=== PATIENT | female | born 1960 | race Caucasian/White ===

== ENCOUNTER 2016-07-18 21:27 | Inpatient (IN) | payer BC ==
[~2016-07-18] VITALS: Ht 170.2 cm; Wt 111.6 kg
[~2016-07-18 21:27] MED LIST: HYDR12.58 PO; LEVO25TA2 PO; LEVO500T38 PO; LEVO75TA5 PO
[2016-07-18] MEDS ORDERED: DEXA4TAB PO (22:15)
[2016-07-18] MEDS ORDERED: HYDR12.53 PO (22:15)
[2016-07-18] MEDS ORDERED: HYDR-2678 PO (22:16)
[2016-07-18 22:26] LABS: BILIRUBIN,URINE NEGATIVE (NEG); GLUCOSE,URINE NEGATIVE (NEG); NITRITE,URINE NEGATIVE (NEG); PH,URINE 5.5; PROTEIN,URINE NEGATIVE (NEG-TRACE); UROBILINOGEN,URINE 0.2 mg/dL (0.2 mg/dL)
[2016-07-18 22:34] LABS: BACTERIA,URINE 0 /HPF (0-FEW); SQUAMOUS EPITHELIAL CELL,UR MOD /LPF
[2016-07-18] MEDS ORDERED: HYDROMORPHONE 2 MG/ML VIAL. IV ONE (23:00)
[2016-07-18] MEDS ORDERED: ONDANSETRON PF 4 MG/2 ML VIAL. IV ONE (23:00)
--- NOTE | 2016-07-18 23:56 | RAD ---
PROCEDURE CT scan of the abdomen and pelvis without contrast 07/18/2016 HISTORY Left-sided flank pain and nausea and vomiting. TECHNIQUE Unenhanced contiguous, 2 millimeter axial sections were obtained through the abdomen and pelvis. One or more of the following individualized dose reduction techniques were utilized for this study: 1. Automated exposure control. 2. Adjustment of the mA and/or kV according to patient size. 3. Use of iterative reconstruction technique. FINDINGS Images through the lung bases demonstrate a small left pneumothorax which is incompletely visualized on this study. Areas of subsegmental atelectasis are seen involving both lower lobes. A 8 millimeter calcified granuloma is seen involving the lingula. The heart is borderline enlarged. The liver, spleen, pancreas, and adrenal glands are within normal limits. Bilateral nonobstructing renal calculi are seen. These measure 2 millimeters to 6 millimeters in size. The abdominal aorta tapers normally. The gallbladder is well distended. No free fluid or free air is seen within the abdomen. There is no evidence of bowel obstruction. Images through the pelvis demonstrate the urinary bladder distended with urine. Calcifications are seen within the pelvis consistent with phleboliths. The uterus is within normal limits. No adnexal mass is seen. A moderate amount of stool is seen within the rectum. No free fluid is noted. Very mild S-shaped curvature of the thoracolumbar spine is seen. Degenerative changes are seen involving the lower thoracic and throughout the lumbar spine. IMPRESSION 1. Small left pneumothorax which is incompletely visualized on this study. 2. No acute abnormality is seen involving the abdomen and pelvis. Electronically signed by: Geoff Vail MD (Jul 18, 2016 23:54:53)
[2016-07-19] MEDS ORDERED: ACETAMINOPHEN 325 MG TABLET. PO PRN (00:15)
--- NOTE | 2016-07-19 00:26 | PHYS DOC ---
Past Medical History Past Medical History: Cancer, Hypertension, Kidney Stone, Other Additional Past Medical Histor: BREAST CANCER,HYPOTHYROID Past Surgical History: Other Additional Past Surgical Histo: PORTOCATH 06/2016, LUMPECTOMY R BREAST Alcohol Use: None Drug Use: None Adult General Chief Complaint Chief Complaint: POST-OP PROBLEM HPI HPI Patient is a 56 year old female who presents here today complaining of chest pain and back pain. Patient with history significant for breast cancer, hypertension, kidney stones, thyroid cancer. Patient reports that she had [facility] Patient reports no history of diabetes liver or lung problems. Patient had 3 C-sections in the past. Patient is also had a breast lumpectomy. Patient's primary care doctor is Dr. Harman. Patient reports that after procedure today she was having some pain to her back and chest and throughout the course of the evening the pain scale and worse and worse. Patient reports that currently the pain is intolerable and is coming into the ER. Patient is complaining of some nausea, vomiting, shortness of breath. Patient denies any fevers shaking chills. Patient reports she has a nonproductive cough. Patient has any abdominal pain. Patient denies any lower semi-edema. Patient has any calf tenderness. Patient denies any hemoptysis. Patient's physical exam was remarkable for tenderness to palpation around the site of her incision. There is no crepitance is appreciable. Patient's lungs are clear. There is no wheezing rales or rhonchi. Patient's breath sounds are equal bilaterally. Patient abdominal exam was normal. Patient does not appear to be in any acute distress at this time. Patient had a stat portable chest x-ray upon arrival to the ER to look for pneumothorax. Patient's chest x-ray did not reveal any evidence of a pneumothorax or evidence of air in the soft tissue. Given the patient's history of kidney stones in the pain in the back we obtain a CT scan of her abdomen pelvis to rule out kidney stones. Patient's CT scan revealed that she had a small pneumothorax that was identified by the radiologist. No other acute pathology was identified. I discussed the case with Dr. Harman and he is agreed with the plan to admit the patient for pain management and to monitor her pneumothorax for any expansion. Dr. Zavaleta will be consulted for further management of her care. Review of Systems Review of Systems Constitutional: Denies fever or chills [] Eyes: Denies change in visual acuity, redness, or eye pain [] All other review systems are negative except as documented in the history of present illness. Current Medications Current Medications Current Medications Medications (Trade) Dose Ordered Sig/Radu Start Time Stop Time Status Last Admin Dose Admin Acetaminophen (Tylenol) 650 mg PRN Q4HRS PRN 07/19/16 00:15 07/20/16 00:14 UNV Fentanyl Citrate (Fentanyl 2ml Vial) 50 mcg PRN Q1HR PRN 07/19/16 00:15 07/20/16 00:14 UNV Fentanyl Citrate (Fentanyl 5ml Vial) 25 mcg 1X STAT 07/19/16 00:17 07/19/16 00:18 UNV Hydromorphone HCl (Dilaudid) 1 mg 1X ONCE 07/18/16 23:00 07/18/16 23:01 DC 07/18/16 22:39 1 MG Ondansetron HCl (Zofran) 4 mg PRN Q8HRS PRN 07/19/16 00:15 07/20/16 00:14 UNV Allergies Allergies Allergies Coded Allergies Type Severity Reaction Last Updated Verified Sulfa (Sulfonamide Antibiotics) Allergy Intermediate 07/23/15 Yes promethazine Allergy Intermediate 07/23/15 Yes Physical Exam Physical Exam Constitutional: Well developed, well nourished, no acute distress, non-toxic appearance. [] HENT: Normocephalic, atraumatic, bilateral external ears normal, oropharynx moist, no oral exudates, nose normal. [] Eyes: PERRLA, EOMI, conjunctiva normal, no discharge. [] Neck: Normal range of motion, no tenderness, supple, no stridor. [] Cardiovascular:Heart rate regular rhythm, tachycardic Lungs & Thorax: Bilateral breath sounds clear to auscultation [] Abdomen: Bowel sounds normal, soft, no tenderness, no masses, no pulsatile masses. [] Skin: Warm, dry, no erythema, no rash. [] Back: No tenderness, no CVA tenderness. [] Extremities: No tenderness, no cyanosis, no clubbing, ROM intact, no edema. [] Neurologic: Alert and oriented X 3, normal motor function, normal sensory function, no focal deficits noted. [] Psychologic: Affect normal, judgement normal, mood normal. [] Current Patient Data Vital Signs Vital Signs Date Time Temp Pulse Resp B/P Pulse Ox O2 Delivery O2 Flow Rate FiO2 07/18/16 23:33 110 15 101/68 100 Nasal Cannula 2 07/18/16 22:01 98.2 98.2 Lab Values Laboratory Tests Test 07/18/16 21:55 Urine Collection Type Unknown Urine Color Yellow Urine Clarity Clear Urine pH 5.5 Urine Specific [place] >=1.030 Urine Protein Negativemg/dL (NEG-TRACE) Urine Glucose (UA) Negativemg/dL (NEG) Urine Ketones (Stick) Negativemg/dL (NEG) Urine Blood Trace (NEG) Urine Nitrite Negative (NEG) Urine Bilirubin Negative (NEG) Urine Urobilinogen Dipstick 0.2mg/dL (0.2 mg/dL) Urine Leukocyte Esterase Small (NEG) Urine RBC 1-2/HPF (0-2) Urine WBC 11-20/HPF (0-4) Urine Squamous Epithelial Cells Mod/LPF Urine Bacteria 0/HPF (0-FEW) Urine Mucus Mod/LPF EKG EKG [] Radiology/Procedures Radiology/Procedures [] Course & Med Decision Making Course & Med Decision Making Pertinent Labs and Imaging studies reviewed. (See chart for details) [] This is a 56-year-old female who presents here today complaining of worsening left-sided sharp chest pain is pleuritic in nature. Patient recently had a procedure done to place a Port-A-Cath on the left side of her chest for possible chemotherapy for breast cancer. Patient's workup in the ER revealed a small left-sided pneumothorax. Patient be admitted to the hospital for further management. Patient was given Dilaudid 1 mg IV to assist her with her pain. Patient also given 25 mics of fentanyl to help her manage her pain. Dragon Disclaimer Dragon Disclaimer This electronic medical record was generated, in whole or in part, using a voice recognition dictation system. Departure Departure Impression: Primary Impression: Traumatic pneumothorax Disposition: ADMITTED INPATIENT Admitting Physician: Ruben Harman Condition: GUARDED Referrals: SHARMAINE CHEATHAM (PCP) MAKAYLA PORRAS MD Jul 19, 2016 00:26
[2016-07-19] MEDS: FENTANYL PF 100 MCG/2 ML VIAL. IV ONE ×2 (00:30→01:00)
[2016-07-19 00:40] LABS: BASO # 0.1 x10^3/uL (0.0-0.2); BASO % 1 % (0-3); EOS % 0 % (0-3); HEMATOCRIT 38.8 % (36.0-47.0); HEMOGLOBIN 13.1 g/dL (12.0-15.5); LYMPH % 16 % (24-48); MEAN CORPUSCULAR HEMOGLOBIN 32 pg (25-35); MEAN CORPUSCULAR HGB CONC 34 g/dL (31-37); MEAN CORPUSCULAR VOLUME 96 fL (79-100); MONO % 4 % (0-9); NEUT % 80 % (31-73); PLATELET COUNT 362 x10^3/uL (140-400); RED BLOOD COUNT 4.06 x10^6/uL (3.50-5.40); RED CELL DISTRIBUTION WIDTH 13.9 % (11.5-14.5); WHITE BLOOD COUNT 12.6 x10^3/uL (4.0-11.0)
[2016-07-19 00:51] LABS: CALCIUM 9.7 mg/dL (8.5-10.1); CREATININE 0.8 mg/dL (0.6-1.0); GFR 74.7
[2016-07-19 00:56] LABS: INR 1.1 (0.8-1.1); PROTHROMBIN TIME PATIENT 13.4 SEC (11.7-14.0)
[2016-07-19 00:57] LABS: ALBUMIN/GLOBULIN RATIO 1.2 (1.0-1.7); TOTAL BILIRUBIN 0.4 mg/dL (0.2-1.0); TOTAL PROTEIN 7.3 g/dL (6.4-8.2)
[2016-07-19] MEDS: FENTANYL PF 100 MCG/2 ML VIAL. IV PRN ×9 (01:15→23:09)
[2016-07-19] MEDS: ONDANSETRON PF 4 MG/2 ML VIAL. IV PRN ×2 (01:33→07:41)
[2016-07-19 03:00] VITALS: BP 147/81
[2016-07-19 07:00] VITALS: BP 138/81
--- NOTE | 2016-07-19 07:29 | RAD ---
Indication: Chest pain and back pain with shortness of air. No prior studies are available for comparison. Left subclavian line has tip overlying the SVC. There is central congestion but no overt failure. No effusion or pneumothorax is seen. Impression: Central congestion.
[2016-07-19] MEDS ORDERED: HYDROCODONE/APAP 5/325MG TABLET. PO PRN (08:30)
--- NOTE | 2016-07-19 08:34 | PDOC ---
Provider Note Provider Note [id number] MARIAN MASON MD Jul 19, 2016 08:34
[2016-07-19] MEDS ORDERED: KETOROLAC TROMETHAMINE 30 MG/ML SYRINGE. IV PRN (08:45)
[2016-07-19] MEDS ORDERED: LEVOFLOXACIN 500 MG TABLET PO SCH (09:00)
[2016-07-19] MEDS ORDERED: DEXAMETHASONE 4 MG TABLET PO SCH (09:00)
[2016-07-19] MEDS ORDERED: NON FORMULARY ITEM (Hydrochlorothiazide (Hydrochlorothiazide Tablet) 12.5 MG) PO SCH (09:00)
[2016-07-19] MEDS: HYDROCHLOROTHIAZIDE 12.5 MG CAPSULE. PO SCH (09:19)
[2016-07-19] MEDS: LEVOTHYROXINE 75 MCG TABLET PO SCH (09:20)
--- NOTE | 2016-07-19 09:24 | RAD ---
Portable chest, 07/19/2016: History: Follow-up pneumothorax Comparison is made to yesterday's study. A left Port-A-Cath extends into the superior vena cava. The heart is within normal limits in size. The pulmonary vascularity is normal. Mild streaky atelectasis has developed in the lung bases. The upper lung ledezma are clear. A tiny left-sided pneumothorax is now visible. It was clearly demonstrated on yesterday's CT abdomen study. No pleural fluid is evident. IMPRESSION: 1. Tiny left pneumothorax. 2. Mild bibasilar discoid atelectasis.
--- NOTE | 2016-07-19 10:19 | EKG ---
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
[2016-07-19 11:06] VITALS: BP 131/77
--- NOTE | 2016-07-19 11:53 | PDOC ---
Provider Note Provider Note dictated tiny left PTX, post oralia-cath stable. f/u cxr in RUBY Ardon MD Jul 19, 2016 11:53
--- NOTE | 2016-07-19 14:56 | HP ---
ADMIT DATE: 07/19/2016 CHIEF COMPLAINT: Left chest pain. HISTORY OF PRESENT ILLNESS: This is a 56-year-old white female with known breast cancer who is followed in our office for hypertension, had a left subclavian placed at the [place] office of [facility] where her oncologist works on the same day of admission. She developed some progressive left-sided, somewhat pleuritic, poorly localized chest pain later that day and came to the hospital. Plain chest x-ray did not show the pneumothorax, but the CT scan showed a small right-sided pneumothorax. She was admitted with oxygen and pain meds. She is feeling a little better at this time. PAST MEDICAL HISTORY: Hydrochlorothiazide is certainly medication which she takes for hypertension. She also takes thyroid medication. PAST SURGICAL HISTORY: She has had tonsillectomy, partial thyroidectomy for thyroid cancer, uterine polyp removal and then some degree of breast surgery, which is ongoing with the breast cancer that she has gotten now. She is entered in a new chemotherapy protocol per very soon. ALLERGIES: Listed to sulfa and Phenergan. SOCIAL HISTORY: She is , employed, nonsmoker, nondrinker. FAMILY HISTORY: Unremarkable. REVIEW OF SYSTEMS: No other complaints. OBJECTIVE: ENT: All within normal limits. NECK: No masses, nodes or bruits. LUNGS: Decreased breath sounds at both bases. No dullness to percussion or hyperresonance. No friction rub is heard. CARDIOVASCULAR: Regular rate, no irregular beat or murmur. ABDOMEN: Soft, benign and nontender. EXTREMITIES: Good pedal and radial pulses, no edema. No joint or skin lesions. NEUROLOGIC: Physiologic, oriented x 4, nonfocal. ASSESSMENT: Left-sided chest pain from the pneumothorax after left subclavian vein catheter port placement. She has ongoing breast cancer and stable hypertension and thyroid disease. PLAN: High flow oxygen, serial chest x-rays, pulmonary consultation and supportive Care. MARIAN MASON MD DR: HERBERT/frida JOB#: [id number] / [id number]
--- NOTE | 2016-07-19 15:17 | CONS ---
DATE OF CONSULTATION: ATTENDING PHYSICIAN: Dr. Ruben Harman. REASON FOR CONSULTATION: Pneumothorax. HISTORY OF PRESENT ILLNESS: The patient is a 56-year-old female who has been diagnosed with right breast cancer with lymph node involvement. She follows at . She had a breast lumpectomy. The patient had a Port-A-Cath placed at yesterday and she was brought into the hospital because she was complaining of pain in the left side of the chest and left upper quadrant. Her chest x-ray initially did not reveal any definite pneumothorax; however, she underwent CT abdomen and pelvis, which was reviewed by me and it showed a small left pneumothorax. The patient has been kept on 100% oxygen to treat pneumothorax. Her saturations were 100% on room air. Currently, she is in no obvious respiratory distress. I have reviewed chest x-ray and it shows a tiny, probably 5% pneumothorax today. Consultation requested for further evaluation and management. PAST MEDICAL HISTORY: Significant for history of breast cancer, status post right lumpectomy, history of hypertension, and renal stones. PAST SURGICAL HISTORY: Port-A-Cath and right lumpectomy. ALLERGIES: SULFA AND PROMETHAZINE. SOCIAL HISTORY: Smoked for about 10 years before quitting. FAMILY HISTORY: Noncontributory to lungs. MEDICATIONS: All reviewed as listed in the MRAD. PHYSICAL EXAMINATION: VITAL SIGNS: Stable, pulse ox was 100% on room air. Currently, she is on nonrebreather mask to treat her pneumothorax. HEENT: Sclerae nonicteric. NECK: Supple. LUNGS: Slightly diminished breath sounds bilaterally. CARDIOVASCULAR: Regular rate. ABDOMEN: Soft, obese. EXTREMITIES: No pitting edema. LABORATORY DATA: Reviewed. White cell count 12.6. BUN is 20, creatinine 0.8. Hemoglobin is 13.1. IMPRESSION: 1. Iatrogenic left-sided small pneumothorax. The patient underwent Port-A-Cath placement at yesterday and developed a symptomatic tiny left-sided pneumothorax. It has not expanded and it is probably less than 5%. We will continue to monitor. 2. No significant history of tobacco use. 3. History of right breast cancer, status post right lumpectomy and has not received any treatment yet. RECOMMENDATIONS: 1. Continue with nonrebreather 100% FiO2 to treat pneumothorax. 2. Follow chest x-ray for another day, and if it remains stable, then she could be discharged. 3. Follow with oncology regarding further treatment for breast cancer. RUBY LEWIS MD DR: FRANCIS/frida JOB#: [id number] / [id number] MAXIM
[2016-07-19 15:41] VITALS: BP 132/75
[2016-07-19] MEDS: HYDROCODONE/APAP 5/325MG TABLET. PO PRN (18:27)
[2016-07-19 19:00] VITALS: BP 148/81
[2016-07-19 23:00] VITALS: BP 158/85
[2016-07-20] MEDS: HYDROCODONE/APAP 5/325MG TABLET. PO PRN ×3 (00:34→09:59)
[2016-07-20 03:00] VITALS: BP 130/73
[2016-07-20 07:56] VITALS: BP 129/75
[2016-07-20] MEDS ORDERED: HYDROCODONE/APAP 5/325MG TABLET. PO PRN (08:30)
--- NOTE | 2016-07-20 08:35 | PDOC ---
Provider Note Provider Note vss, no new sxs- still some pain L side but less - cxr looks clear to me of pneumo, reading pending- can dc when MARIAN Dela Cruz MD Jul 20, 2016 08:35
--- NOTE | 2016-07-20 09:00 | RAD ---
Indication: Pneumothorax. Time of exam 0815 hours. Correlation is made with prior study one day earlier. Left subclavian line remains in place. No significant pneumothorax is identified on today's exam. There continues to be subsegmental atelectasis in the lung bases. Right hemidiaphragm is mildly elevated. Impression: Bibasilar subsegmental atelectasis. Tiny left pneumothorax noted on yesterday's exam is not well-visualized today.
[2016-07-20] MEDS: HYDROCHLOROTHIAZIDE 12.5 MG CAPSULE. PO SCH (09:53)
[2016-07-20] MEDS: LEVOTHYROXINE 75 MCG TABLET PO SCH (09:53)
--- NOTE | 2016-07-20 10:13 | PDOC ---
PULMONARY PROGRESS NOTES Subjective feels better Vitals Vital Signs Date Time Temp Pulse Resp B/P Pulse Ox O2 Delivery O2 Flow Rate FiO2 07/20/16 09:59 20 Room Air 07/20/16 07:56 97.9 86 129/75 100 97.9 07/20/16 06:46 15.0 General: Alert, No acute distress Lungs: Clear Cardiovascular: S1 Abdomen: Soft Neuro Exam: Alert Extremities: No Edema Skin: Warm Labs Laboratory Tests Test 07/18/16 21:55 07/18/16 22:05 Urine Collection Type Unknown Urine Color Yellow Urine Clarity Clear Urine pH 5.5 Urine Specific [place] >=1.030 Urine Protein Negativemg/dL (NEG-TRACE) Urine Glucose (UA) Negativemg/dL (NEG) Urine Ketones (Stick) Negativemg/dL (NEG) Urine Blood Trace (NEG) Urine Nitrite Negative (NEG) Urine Bilirubin Negative (NEG) Urine Urobilinogen Dipstick 0.2mg/dL (0.2 mg/dL) Urine Leukocyte Esterase Small (NEG) Urine RBC 1-2/HPF (0-2) Urine WBC 11-20/HPF (0-4) Urine Squamous Epithelial Cells Mod/LPF Urine Bacteria 0/HPF (0-FEW) Urine Mucus Mod/LPF White Blood Count 12.6x10^3/uL (4.0-11.0) Red Blood Count 4.06x10^6/uL (3.50-5.40) Hemoglobin 13.1g/dL (12.0-15.5) Hematocrit 38.8% (36.0-47.0) Mean Corpuscular Volume 96fL (79-100) Mean Corpuscular Hemoglobin 32pg (25-35) Mean Corpuscular Hemoglobin Concent 34g/dL (31-37) Red Cell Distribution Width 13.9% (11.5-14.5) Platelet Count 362x10^3/uL (140-400) Neutrophils (%) (Auto) 80% (31-73) Lymphocytes (%) (Auto) 16% (24-48) Monocytes (%) (Auto) 4% (0-9) Eosinophils (%) (Auto) 0% (0-3) Basophils (%) (Auto) 1% (0-3) Neutrophils # (Auto) 10.0x10^3uL (1.8-7.7) Lymphocytes # (Auto) 2.0x10^3/uL (1.0-4.8) Monocytes # (Auto) 0.5x10^3/uL (0.0-1.1) Eosinophils # (Auto) 0.0x10^3/uL (0.0-0.7) Basophils # (Auto) 0.1x10^3/uL (0.0-0.2) Prothrombin Time 13.4SEC (11.7-14.0) Prothromb Time International Ratio 1.1 (0.8-1.1) Sodium Level 145mmol/L (136-145) Potassium Level 5.0mmol/L (3.5-5.1) Chloride Level 107mmol/L (98-107) Carbon Dioxide Level 29mmol/L (21-32) Anion Gap 9 (6-14) Blood Urea Nitrogen 20mg/dL (7-20) Creatinine 0.8mg/dL (0.6-1.0) Estimated GFR (Cockcroft-Gault) 74.7 BUN/Creatinine Ratio 25 (6-20) Glucose Level 123mg/dL (70-99) Calcium Level 9.7mg/dL (8.5-10.1) Total Bilirubin 0.4mg/dL (0.2-1.0) Aspartate Amino Transf (AST/SGOT) 31U/L (15-37) Alanine Aminotransferase (ALT/SGPT) 38U/L (14-59) Alkaline Phosphatase 98U/L (46-116) Total Protein 7.3g/dL (6.4-8.2) Albumin 4.0g/dL (3.4-5.0) Albumin/Globulin Ratio 1.2 (1.0-1.7) Medications Active Scripts Medications Dose Route/Sig Days Date Category Lortab 5-325 mg Tablet (Hydrocodone/Acetaminophen) 1 Each Tablet 1 Tab PO PRN Q6HRS PRN 07/18/16 Reported Hydrochlorothiazide Capsule (Hydrochlorothiazide) 12.5 Mg Capsule 1 Cap PO DAILY 07/18/16 Reported Dexamethasone 4 Mg Tablet 4 Tab PO DAILY 07/18/16 Reported Levaquin (Levofloxacin) 500 Mg Tablet 500 Mg PO DAILY 07/21/15 Reported Hydrochlorothiazide Tablet (Hydrochlorothiazide) 12.5 Mg Tablet 12.5 Mg PO DAILY 1/26/16 Reported Levothyroxine Sodium 75 Mcg Tablet 75 Mcg PO DAILYAC 07/21/15 Reported Impression . 1. Iatrogenic left-sided small pneumothorax. The patient underwent Port-A-Cath placement at yesterday and developed a symptomatic tiny left-sided pneumothorax. It has not expanded and now resolved 2. No significant history of tobacco use. 3. History of right breast cancer, status post right lumpectomy and has not received any treatment yet. Plan . 1. d/c oxygen 2. Follow chest x-ray today with resolved PTX. OK WITH D/C TODAY 3. Follow with oncology regarding further treatment for breast cancer. RUBY LEWIS MD Jul 20, 2016 10:13
[2016-07-20 10:29] VITALS: BP 141/74
[2016-07-20] MEDS ORDERED: IBUP-1027 PO (13:56)
[2016-07-20] MEDS ORDERED: IBUPROFEN 400 MG TABLET. PO PRN (14:00)
[2016-07-20 14:45] VITALS: BP 125/70
--- NOTE | 2016-07-20 20:15 | DS ---
DATE OF DISCHARGE: 07/20/2016 HOSPITAL SUMMARY: A 56-year-old white female who came in with left-sided chest pain some hours after having a Port-A-Cath placed through a [facility] in her left chest. Plain chest x-ray was clear with CT scan showed about a 5% pneumothorax and no other specific abnormalities. Laboratory studies were normal and subsequent chest x-rays were clear. She was given 100% oxygen nonrebreather over about 36 hour period and her pain is much lessened and Dr. Aj and patient were both comfortable. The patient will be discharged and followed as an outpatient. FINAL DIAGNOSES: Left-sided pneumothorax secondary to left subclavian vein catheter placement. OPERATIONS, PROCEDURES, COMPLICATIONS: None. CONSULTATIONS: Dr. Aj. DISPOSITION: Home meds remain the same. Follow up with [facility] for starting chemotherapy regimen as she is doing and we will see her in the office as needed for hypertension. MARIAN MASON MD DR: HERBERT/frida JOB#: [id number] / [id number]
== END 2016-07-20 14:55 | disposition home or self-care (01) | DRG 920 ==
LOC: ER 21:27 → 5 NORTH 07-19 00:14
PROVIDERS: ADMIT Family Medicine; ATTEND Family Medicine
DX: T85.9XXA Unspecified complication of internal prosthetic device, implant and graft, initial encounter (principal); S27.0XXA Traumatic pneumothorax, initial encounter; E66.9 Obesity, unspecified; R11.2 Nausea with vomiting, unspecified; M54.9 Dorsalgia, unspecified; C50.911 Malignant neoplasm of unspecified site of right female breast; E89.0 Postprocedural hypothyroidism; I10 Essential (primary) hypertension; Z85.850 Personal history of malignant neoplasm of thyroid; Z85.3 Personal history of malignant neoplasm of breast; Z87.442 Personal history of urinary calculi; Z88.2 Allergy status to sulfonamides; Z88.8 Allergy status to other drugs, medicaments and biological substances; Z98.890 Other specified postprocedural states; Z87.891 Personal history of nicotine dependence; Z68.38 Body mass index [BMI] 38.0-38.9, adult
CPT/HCPCS: 36415; 71010; 74176; 80053; 81001; 85027; 85610; 87086; 93005; 96374; 96375; J1170; J2405; J3010; 99285-25

== ENCOUNTER 2017-03-23 14:19 | Emergency (ER) | payer BC ==
[~2017-03-23] VITALS: Ht 170.2 cm; Wt 109.8 kg
[~2017-03-23 14:19] MED LIST changes: +DEXA4TAB PO; +HYDR-2678 PO; +HYDR12.53 PO; +IBUP-1027 PO; -LEVO25TA2 PO; +LEVO25TA55 PO; -LEVO500T38 PO; +LEVO500T59 PO
[2017-03-23] MEDS ORDERED: KETOROLAC 15 MG/ML VIAL. IV ONE ×2 (15:00→17:30)
[2017-03-23] MEDS ORDERED: IV NORMAL SALINE 1000ML BAG 1,000 ML IV ONE (15:00)
[2017-03-23 15:07] LABS: BILIRUBIN,URINE NEGATIVE (NEG); GLUCOSE,URINE NEGATIVE (NEG); NITRITE,URINE NEGATIVE (NEG); PH,URINE 6.5; PROTEIN,URINE NEGATIVE (NEG-TRACE); UROBILINOGEN,URINE 0.2 mg/dL (0.2 mg/dL)
[2017-03-23] MEDS ORDERED: LETR2.5T18 PO (15:16)
[2017-03-23 15:18] LABS: BACTERIA,URINE FEW /HPF (0-FEW); RBC,URINE OCC /HPF (0-2); SQUAMOUS EPITHELIAL CELL,UR OCC /LPF; WBC,URINE 0 /HPF (0-4)
[2017-03-23 15:27] LABS: BASO % 1 % (0-3); EOS % 5 % (0-3); HEMATOCRIT 38.4 % (36.0-47.0); HEMOGLOBIN 13.1 g/dL (12.0-15.5); LYMPH # 1.5 x10^3/uL (1.0-4.8); LYMPH % 30 % (24-48); MEAN CORPUSCULAR HEMOGLOBIN 28 pg (25-35); MEAN CORPUSCULAR HGB CONC 34 g/dL (31-37); MEAN CORPUSCULAR VOLUME 83 fL (79-100); MONO % 10 % (0-9); NEUT % 54 % (31-73); PLATELET COUNT 219 x10^3/uL (140-400); RED BLOOD COUNT 4.62 x10^6/uL (3.50-5.40); RED CELL DISTRIBUTION WIDTH 16.5 % (11.5-14.5); WHITE BLOOD COUNT 5.1 x10^3/uL (4.0-11.0)
[2017-03-23 15:39] LABS: CALCIUM 9.3 mg/dL (8.5-10.1); CREATININE 0.6 mg/dL (0.6-1.0); GFR 103.8
--- NOTE | 2017-03-23 16:05 | RAD ---
Examination: Ultrasound kidneys History: History of left flank pain, renal stones Comparison: None available Findings: The right kidney measures 12.0 x 4.9 x 5.6 cm. The left kidney measures 11.4 x 4.9 x 5.6 cm. There is a 9 mm echogenicity identified in the left kidney could be cortical calcification or intrarenal collecting system calculus. No evidence of hydronephrosis identified. The urinary bladder is empty. Impression: 1. 9 mm echogenicity likely calcification identified in the left kidney could be cortical calcification or intrarenal collecting system calculus. No evidence of hydronephrosis.
[2017-03-23 17:14] VITALS: BP 132/73
[2017-03-23] MEDS ORDERED: ACET1TAB33 PO (17:53)
[2017-03-23] MEDS ORDERED: NAPR-695 PO (17:53)
--- NOTE | 2017-03-23 17:54 | PHYS DOC ---
Past Medical History Past Medical History: Cancer, Hypertension, Hypothyroid, Kidney Stone, Other Additional Past Medical Histor: BREAST CANCER, collapsed lung d/t sx Past Surgical History: Other Additional Past Surgical Histo: PORTOCATH 06/2016, LUMPECTOMY R BREAST, lithotripsy, chemo, rad Alcohol Use: None Drug Use: None Adult General Chief Complaint Chief Complaint: FLANK PAIN HPI HPI Patient is a 57 year old female presents with left flank pain similar to previous episodes of kidney stone. Patient denies any recent trauma. Patient has no other complaints. Review of Systems Review of Systems Constitutional: Denies fever or chills [] HENT: Denies nasal congestion or sore throat [] Respiratory: Denies cough or shortness of breath [] Cardiovascular: No chest pain GI: Denies abdominal pain, nausea, vomiting, bloody stools or diarrhea [] : Denies dysuria or hematuria [] Musculoskeletal: Yes to left flank pain Integument: Denies rash or skin lesions [] Neurologic: Denies headache, focal weakness or sensory changes [] Endocrine: Denies polyuria or polydipsia [] Current Medications Current Medications Current Medications Medications (Trade) Dose Ordered Sig/Radu Start Time Stop Time Status Last Admin Dose Admin Ketorolac Tromethamine (Toradol) 15 mg 1X ONCE 03/23/17 17:30 03/23/17 17:31 DC Sodium Chloride 1,000 ml @ 1,000 mls/hr 1X ONCE 03/23/17 15:00 03/23/17 15:59 DC 03/23/17 15:29 1,000 MLS/HR Allergies Allergies Allergies Coded Allergies Type Severity Reaction Last Updated Verified Sulfa (Sulfonamide Antibiotics) Allergy Intermediate 07/23/15 Yes promethazine Allergy Intermediate 07/23/15 Yes Physical Exam Physical Exam Constitutional: Well developed, well nourished, mild distress, non-toxic appearance. [] HENT: Normocephalic, atraumatic,, oropharynx dry, no oral exudates, nose normal. [] Eyes: EOMI, conjunctiva normal, no discharge. [] Neck: Normal range of motion, trachea midline, supple, no stridor. [] Cardiovascular:Heart rate regular rhythm, no murmur [] Lungs & Thorax: Bilateral breath sounds clear to auscultation no tachypnea Abdomen: Bowel sounds normal, soft, no tenderness, no masses, no pulsatile masses. [] Skin: Warm, dry, no erythema, no rash. [] Back: No tenderness, no CVA tenderness. [] Extremities: No tenderness, no cyanosis, no clubbing, ROM intact, no edema. [] Neurologic: Alert and oriented X 3, normal motor function, no focal deficits noted. [] Psychologic: Affect normal, judgement normal, mood normal. [] Current Patient Data Vital Signs Vital Signs Date Time Temp Pulse Resp B/P (MAP) Pulse Ox O2 Delivery O2 Flow Rate FiO2 03/23/17 14:30 98.0 89 16 116/68 (84) 99 Room Air 98.0 Lab Values Laboratory Tests Test 03/23/17 14:30 03/23/17 14:42 03/23/17 15:20 Urine Collection Type Unknown Urine Color Yellow Urine Clarity Clear Urine pH 6.5 Urine Specific [place] <=1.005 Urine Protein Negative mg/dL (NEG-TRACE) Urine Glucose (UA) Negative mg/dL (NEG) Urine Ketones (Stick) Negative mg/dL (NEG) Urine Blood Trace (NEG) Urine Nitrite Negative (NEG) Urine Bilirubin Negative (NEG) Urine Urobilinogen Dipstick 0.2 mg/dL (0.2 mg/dL) Urine Leukocyte Esterase Negative (NEG) Urine RBC Occ /HPF (0-2) Urine WBC 0 /HPF (0-4) Urine Squamous Epithelial Cells Occ /LPF Urine Bacteria Few /HPF (0-FEW) POC Urine HCG, Qualitative Hcg negative (Negative) White Blood Count 5.1 x10^3/uL (4.0-11.0) Red Blood Count 4.62 x10^6/uL (3.50-5.40) Hemoglobin 13.1 g/dL (12.0-15.5) Hematocrit 38.4 % (36.0-47.0) Mean Corpuscular Volume 83 fL (79-100) Mean Corpuscular Hemoglobin 28 pg (25-35) Mean Corpuscular Hemoglobin Concent 34 g/dL (31-37) Red Cell Distribution Width 16.5 % (11.5-14.5) H Platelet Count 219 x10^3/uL (140-400) Neutrophils (%) (Auto) 54 % (31-73) Lymphocytes (%) (Auto) 30 % (24-48) Monocytes (%) (Auto) 10 % (0-9) H Eosinophils (%) (Auto) 5 % (0-3) H Basophils (%) (Auto) 1 % (0-3) Neutrophils # (Auto) 2.8 x10^3uL (1.8-7.7) Lymphocytes # (Auto) 1.5 x10^3/uL (1.0-4.8) Monocytes # (Auto) 0.5 x10^3/uL (0.0-1.1) Eosinophils # (Auto) 0.2 x10^3/uL (0.0-0.7) Basophils # (Auto) 0.0 x10^3/uL (0.0-0.2) Sodium Level 143 mmol/L (136-145) Potassium Level 4.0 mmol/L (3.5-5.1) Chloride Level 107 mmol/L (98-107) Carbon Dioxide Level 27 mmol/L (21-32) Anion Gap 9 (6-14) Blood Urea Nitrogen 7 mg/dL (7-20) Creatinine 0.6 mg/dL (0.6-1.0) Estimated GFR (Cockcroft-Gault) 103.8 Glucose Level 85 mg/dL (70-99) Calcium Level 9.3 mg/dL (8.5-10.1) Laboratory Tests 03/23/17 15:20 Laboratory Tests 03/23/17 15:20 EKG EKG [] Radiology/Procedures Radiology/Procedures US no remarkable findings[] Course & Med Decision Making Course & Med Decision Making Pertinent Labs and Imaging studies reviewed. (See chart for details) pain well controlled, discussed CT option but pt declines at this time due to concerns for radiation exposure. [] Dragon Disclaimer Dragon Disclaimer This electronic medical record was generated, in whole or in part, using a voice recognition dictation system. Departure Departure Impression: Primary Impression: Flank pain Disposition: 01 HOME, SELF-CARE Condition: STABLE Referrals: MARIAN MASON MD (PCP) Patient Instructions: Flank Pain Additional Instructions: please follow up with your pcp for recheck in 2 days Scripts Naproxen (NAPROXEN) 375 Mg Tablet 1 TAB PO BID, #20 TAB 0 Refills Prov: Reagan VILLALTA MD 03/23/17 Acetaminophen With Codeine (ACETAMINOPHEN-COD #3 TABLET) 1 Each Tablet 1 TAB PO PRN Q6HRS Y for PAIN for 2 Days, #8 TAB Prov: Reagan VILLALTA MD 03/23/17 Reagan VILLALTA MD Mar 23, 2017 17:54
== END 2017-03-23 17:57 | disposition home or self-care (01) ==
LOC: ER 14:19
DX: R10.9 Unspecified abdominal pain (principal); I10 Essential (primary) hypertension; E03.9 Hypothyroidism, unspecified; Z87.442 Personal history of urinary calculi; Z88.2 Allergy status to sulfonamides; Z88.8 Allergy status to other drugs, medicaments and biological substances
CPT/HCPCS: 36415; 76770; 80048; 81001; 81025; 85025; 96361; 96374; 96376; 99285; J1885; J7030

== ENCOUNTER 2020-12-05 09:53 | Emergency (ER) | payer BC, OTHER ==
[~2020-12-05] VITALS: Ht 167.6 cm; Wt 116.8 kg
[~2020-12-05 09:53] MED LIST changes: +ACET1TAB33 PO; +FEMARA2.5 MG PO; -HYDR12.53 PO; +HYDR12.575 PO; +NAPR-695 PO
[2020-12-05 10:26] LABS: BILIRUBIN,URINE NEGATIVE (NEG); CLARITY,URINE CLEAR; COLOR,URINE YELLOW; NITRITE,URINE NEGATIVE (NEG); PH,URINE 6.5 (<5.0-8.0); PROTEIN,URINE NEGATIVE (NEG-TRACE); UROBILINOGEN,URINE 0.2 mg/dL (0.2 mg/dL)
[2020-12-05 10:46] LABS: BACTERIA,URINE FEW /HPF (0-FEW); WBC,URINE >40 /HPF (0-4)
[2020-12-05 10:54] LABS: BASO # 0.1 x10^3/uL (0.0-0.2); BASO % 1 % (0-3); EOS # 0.3 x10^3/uL (0.0-0.7); EOS % 2 % (0-3); HEMATOCRIT 38.4 % (36.0-47.0); LYMPH # 1.5 x10^3/uL (1.0-4.8); LYMPH % 12 % (24-48); MEAN CORPUSCULAR HEMOGLOBIN 29 pg (25-35); MEAN CORPUSCULAR HGB CONC 34 g/dL (31-37); MEAN CORPUSCULAR VOLUME 85 fL (79-100); MONO % 8 % (0-9); NEUT # 9.7 x10^3/uL (1.8-7.7); NEUT % 77 % (31-73); PLATELET COUNT 243 x10^3/uL (140-400); RED BLOOD COUNT 4.52 x10^6/uL (3.50-5.40); RED CELL DISTRIBUTION WIDTH 14.3 % (11.5-14.5); WHITE BLOOD COUNT 12.5 x10^3/uL (4.0-11.0)
[2020-12-05 10:59] LABS: CALCIUM 9.2 mg/dL (8.5-10.1); CREATININE 0.8 mg/dL (0.6-1.0); GFR 73.7; POTASSIUM 4.1 mmol/L (3.5-5.1)
[2020-12-05] MEDS ORDERED: IOHEXOL 300 MG/ML 100ML VIAL. IV ONE (11:00)
[2020-12-05] MEDS ORDERED: CONTRAST GIVEN. MC PRN (11:00)
[2020-12-05 11:05] LABS: ALBUMIN/GLOBULIN RATIO 1.5 (1.0-1.7); TOTAL BILIRUBIN 0.5 mg/dL (0.2-1.0); TOTAL PROTEIN 6.7 g/dL (6.4-8.2)
--- NOTE | 2020-12-05 11:51 | RAD ---
CT ABDOMEN+PELVIS W History: RLQ pain Comparison: 07/18/2016 Technique: After administration of intravenous contrast, helical CT of the abdomen and pelvis was per formed from the lung bases through the ischial tuberosities. Coronal and sagittal reconstructions wer e obtained. 75 mL of Omnipaque 300 were used. One or more of the following dose reduction techniques were utilized: Automated exposure control (AEC), Adjustment of mA and/or kV according to patient size , Use of iterative reconstruction technique such as ASiR, CT scan done according to ALARA and image g ently/image wisely Abdomen Findings: The visualized lung bases are clear. Hepatic steatosis. The gallbladder, pancreas, spleen, and bilateral adrenal glands are normal. Unchan ged mild central mesenteric haziness, nonspecific but can seen with chronic mesenteric panniculitis. Symmetric renal enhancement. Mild right hydronephrosis with a 10 x 7 mm calculus at the ureteropelvic junction. Hyperemia of the pelvic urothelium. Additional nonobstructive right renal 7 mm calculus. The visualized loops of small bowel are normal. The visualized loops of large bowel are normal. There is no evidence of bowel obstruction. There is no free fluid. There is no mesenteric or retroperitoneal adenopathy. The abdominal aorta is normal in caliber. Pelvis Findings: Urinary bladder is normal. The uterus is present. No pelvic free fluid. There is no pelvic or inguina l adenopathy. There is no acute bony abnormality. IMPRESSION: 1. Mild right hydronephrosis with a 10 x 7 mm calculus at the ureteropelvic junction. Right renal pel vis urothelial hyperemia may reflect pyelitis. 2. Additional nonobstructive right renal 7 mm calculus. Electronically signed by: Memo Anderson MD (12/05/2020 11:49 AM) [id number]
[2020-12-05] MEDS ORDERED: KETOROLAC 30 MG/ML VIAL. IVP ONE (12:30)
[2020-12-05] MEDS ORDERED: TAMSULOSIN 0.4 MG CAP.ER.24H. PO ONE (12:30)
[2020-12-05] MEDS ORDERED: cefTRIAXone IV Push 1 GM VIAL. IVP ONE (12:30)
[2020-12-05] MEDS ORDERED: IV NORMAL SALINE 1000ML BAG 1,000 ML IV ONE (13:00)
--- NOTE | 2020-12-05 14:07 | PHYS DOC ---
Past Medical History Past Medical History: Cancer, Hypertension, Hypothyroid, Kidney Stone, Other Additional Past Medical Histor: BREAST CANCER, collapsed lung d/t sx Past Surgical History: Other Additional Past Surgical Histo: PORTOCATH 06/2016, LUMPECTOMY R BREAST, lithotripsy, chemo, rad Smoking Status: Former Smoker Alcohol Use: None Drug Use: None General Adult EDM: Chief Complaint: ABDOMINAL PAIN HPI: HPI: Patient is a 60 year old female with history of hypertension, kidney stones, breast cancer treated in 2016, who presents to the ED today complaining of 8 out of 10 sharp intermittent right lower quadrant abdominal pain with nausea, symptoms began yesterday. Patient denies anything specifically exacerbating or relieving her symptoms. Denies any hematuria. She states this does not feel similar to her kidney stone pain. Review of Systems: Review of Systems: constitutional: Denies fever or chills. [] Eyes: Denies change in visual acuity. [] HENT: Denies nasal congestion or sore throat. [] Respiratory: Denies cough or shortness of breath. [] Cardiovascular: Denies chest pain or edema. [] GI: Reports right lower quadrant abdominal pain with nausea, denies vomiting, bloody stools or diarrhea. [] : Denies dysuria. [] Musculoskeletal: Denies back pain or joint pain. [] Integument: Denies rash. [] Neurologic: Denies headache, focal weakness or sensory changes. [] Psychiatric: Denies depression or anxiety. [] Heart Score: C/O Chest Pain: N/A Risk Factors: Risk Factors: DM, Current or recent (<one month) smoker, HTN, HLP, family history of CAD, obesity. Risk Scores: Score 0 - 3: 2.5% MACE over next 6 weeks - Discharge Home Score 4 - 6: 20.3% MACE over next 6 weeks - Admit for Clinical Observation Score 7 - 10: 72.7% MACE over next 6 weeks - Early Invasive Strategies Current Medications: Current Medications Medications (Trade) Dose Ordered Sig/Radu Start Time Stop Time Status Last Admin Dose Admin Ceftriaxone Sodium (Rocephin) 1 gm 1X ONCE 12/05/20 12:30 12/05/20 12:31 DC 12/05/20 12:53 1 GM Info (CONTRAST GIVEN -- Rx MONITORING) 1 each PRN DAILY PRN 12/05/20 11:00 12/07/20 10:59 Iohexol (Omnipaque 300 Mg/ml) 75 ml 1X ONCE 12/05/20 11:00 12/05/20 11:01 DC 12/05/20 11:20 75 ML Ketorolac Tromethamine (Toradol 30mg Vial) 30 mg 1X ONCE 12/05/20 12:30 12/05/20 12:31 DC 12/05/20 12:53 30 MG Sodium Chloride 1,000 ml @ 1,000 mls/hr 1X ONCE 12/05/20 13:00 12/05/20 13:59 DC 12/05/20 12:53 1,000 MLS/HR Tamsulosin HCl (Flomax) 0.4 mg 1X ONCE 12/05/20 12:30 12/05/20 12:31 DC 12/05/20 12:53 0.4 MG Allergies: Allergies: Allergies Coded Allergies Type Severity Reaction Last Updated Verified Sulfa (Sulfonamide Antibiotics) Allergy Intermediate 07/23/15 Yes promethazine Allergy Intermediate 07/23/15 Yes Physical Exam: PE: Constitutional: Well developed, well nourished, no acute distress, non-toxic appearance. [] HENT: Normocephalic, atraumatic, bilateral external ears normal, oropharynx moist, no oral exudates, nose normal. [] Eyes: PERRLA, EOMI, conjunctiva normal, no discharge. [] Neck: Normal range of motion, no tenderness, supple, no stridor. [] Cardiovascular:Heart rate regular rhythm, no murmur [] Lungs & Thorax: Bilateral breath sounds clear to auscultation [] Abdomen: Bowel sounds normal, soft, slight tenderness in the right lower quadrant, negative psoas sign, negative obturator sign, negative Rovsing sign no masses, no pulsatile masses. [] Skin: Warm, dry, no erythema, no rash. [] Back: No tenderness, no CVA tenderness. [] Extremities: No tenderness, no cyanosis, no clubbing, ROM intact, no edema. [] Neurologic: Alert and oriented X 3, normal motor function, normal sensory function, no focal deficits noted. [] Psychologic: Affect normal, judgement normal, mood normal. [] Current Patient Data: Labs: Laboratory Tests Test 12/05/20 09:55 12/05/20 10:18 Urine Collection Type Unknown Urine Color Yellow Urine Clarity Clear Urine pH 6.5 (<5.0-8.0) Urine Specific [place] 1.010 (1.000-1.030) Urine Protein Negative mg/dL (NEG-TRACE) Urine Glucose (UA) Negative mg/dL (NEG) Urine Ketones (Stick) Negative mg/dL (NEG) Urine Blood Moderate (NEG) Urine Nitrite Negative (NEG) Urine Bilirubin Negative (NEG) Urine Urobilinogen Dipstick 0.2 mg/dL (0.2 mg/dL) Urine Leukocyte Esterase Large (NEG) Urine RBC 3-5 /HPF (0-2) Urine WBC >40 /HPF (0-4) Urine Squamous Epithelial Cells Occ /LPF Urine Bacteria Few /HPF (0-FEW) White Blood Count 12.5 x10^3/uL (4.0-11.0) H Red Blood Count 4.52 x10^6/uL (3.50-5.40) Hemoglobin 13.0 g/dL (12.0-15.5) Hematocrit 38.4 % (36.0-47.0) Mean Corpuscular Volume 85 fL (79-100) Mean Corpuscular Hemoglobin 29 pg (25-35) Mean Corpuscular Hemoglobin Concent 34 g/dL (31-37) Red Cell Distribution Width 14.3 % (11.5-14.5) Platelet Count 243 x10^3/uL (140-400) Neutrophils (%) (Auto) 77 % (31-73) H Lymphocytes (%) (Auto) 12 % (24-48) L Monocytes (%) (Auto) 8 % (0-9) Eosinophils (%) (Auto) 2 % (0-3) Basophils (%) (Auto) 1 % (0-3) Neutrophils # (Auto) 9.7 x10^3/uL (1.8-7.7) H Lymphocytes # (Auto) 1.5 x10^3/uL (1.0-4.8) Monocytes # (Auto) 1.0 x10^3/uL (0.0-1.1) Eosinophils # (Auto) 0.3 x10^3/uL (0.0-0.7) Basophils # (Auto) 0.1 x10^3/uL (0.0-0.2) Sodium Level 141 mmol/L (136-145) Potassium Level 4.1 mmol/L (3.5-5.1) Chloride Level 107 mmol/L (98-107) Carbon Dioxide Level 24 mmol/L (21-32) Anion Gap 10 (6-14) Blood Urea Nitrogen 12 mg/dL (7-20) Creatinine 0.8 mg/dL (0.6-1.0) Estimated GFR (Cockcroft-Gault) 73.7 BUN/Creatinine Ratio 15 (6-20) Glucose Level 92 mg/dL (70-99) Calcium Level 9.2 mg/dL (8.5-10.1) Total Bilirubin 0.5 mg/dL (0.2-1.0) Aspartate Amino Transferase (AST) 23 U/L (15-37) Alanine Aminotransferase (ALT) 34 U/L (14-59) Alkaline Phosphatase 82 U/L (46-116) Total Protein 6.7 g/dL (6.4-8.2) Albumin 4.0 g/dL (3.4-5.0) Albumin/Globulin Ratio 1.5 (1.0-1.7) Lipase 141 U/L (73-393) Laboratory Tests 12/05/20 10:18 Laboratory Tests 12/05/20 10:18 Vital Signs: Vital Signs Date Time Temp Pulse Resp B/P (MAP) Pulse Ox O2 Delivery O2 Flow Rate FiO2 12/05/20 12:57 89 16 144/79 (100) 99 Room Air 12/05/20 10:17 98.6 98.6 EKG: EKG: [] Radiology/Procedures: Radiology/Procedures: []PROCEDURE: CT ABD PELV W/ IV CONTRST ONLY CT ABDOMEN+PELVIS W History: RLQ pain Comparison: 07/18/2016 Technique: After administration of intravenous contrast, helical CT of the abdomen and pelvis was performed from the lung bases through the ischial tuberosities. Coronal and sagittal reconstructions were obtained. 75 mL of Omnipaque 300 were used. One or more of the following dose reduction techniques were utilized: Automated exposure control (AEC), Adjustment of mA and/or kV according to patient size, Use of iterative reconstruction technique such as ASiR, CT scan done according to ALARA and image gently/image wisely Abdomen Findings: The visualized lung bases are clear. Hepatic steatosis. The gallbladder, pancreas, spleen, and bilateral adrenal glands are normal. Unchanged mild central mesenteric haziness, nonspecific but can seen with chronic mesenteric panniculitis. Symmetric renal enhancement. Mild right hydronephrosis with a 10 x 7 mm calculus at the ureteropelvic junction. Hyperemia of the pelvic urothelium. Additional nonobstructive right renal 7 mm calculus. The visualized loops of small bowel are normal. The visualized loops of large bowel are normal. There is no evidence of bowel obstruction. There is no free fluid. There is no mesenteric or retroperitoneal adenopathy. The abdominal aorta is normal in caliber. Pelvis Findings: Urinary bladder is normal. The uterus is present. No pelvic free fluid. There is no pelvic or inguinal adenopathy. There is no acute bony abnormality. IMPRESSION: 1. Mild right hydronephrosis with a 10 x 7 mm calculus at the ureteropelvic junction. Right renal pelvis urothelial hyperemia may reflect pyelitis. 2. Additional nonobstructive right renal 7 mm calculus. Electronically signed by: Fred Anderson MD (12/05/2020 11:49 AM) [id number] DICTATED and SIGNED BY: FRED ANDERSON MD DATE: 12/05/20 [id number] 0 Course & Med Decision Making: Course & Med Decision Making Pertinent Labs and Imaging studies reviewed. (See chart for details) This is a 60-year-old female patient presenting to the ED today complaining of right lower quadrant abdominal pain with nausea, symptoms since yesterday. Vitals on arrival to the ED temperature 98.6, heart rate 106, respiration 24 on room air, blood pressure 139/72, O2 sats 97% urine positive for moderate amount of blood, large amount of leukocytes. CT of the abdomen and pelvic noted for mild right hydronephrosis with a 10 x 7 mm calculus at the ureteropelvic junction. Right renal pelvis urothelial hyperemia may reflect pyelitis. Additional nonobstructive right renal 7 mm calculus. Patient states she follows up with Dr. Ruth Elias urologist [facility], spoke to Dr. Perez who accepted patient at [facility]. Patient was given Rocephin, Flomax, Toradol, IV fluids were offered. Dragon Disclaimer: Dragmontserrat Disclaimer: This electronic medical record was generated, in whole or in part, using a voice recognition dictation system. Departure Departure Impression: Primary Impression: Pyelonephritis Additional Impression: Kidney stone Disposition: 02 SHORT TERM HOSPITAL Condition: STABLE Referrals: MARIAN MASON MD (PCP) INESSA STRICKLAND MANUFACTURING SR ENGINEER Dec 05, 2020 14:07
[2020-12-05 14:57] VITALS: BP 137/75
== END 2020-12-05 14:12 | disposition short-term general hospital (02) ==
LOC: ER 09:53
DX: N12 Tubulo-interstitial nephritis, not specified as acute or chronic (principal); N13.2 Hydronephrosis with renal and ureteral calculous obstruction; E03.9 Hypothyroidism, unspecified; I10 Essential (primary) hypertension; Z87.891 Personal history of nicotine dependence; Z88.2 Allergy status to sulfonamides; Z88.8 Allergy status to other drugs, medicaments and biological substances
CPT/HCPCS: 36415; 74177; 80053; 81001; 83690; 85025; 87086; 96361; 96374; 96375; 99285; J0696; J1885; J7030; Q9967; 87077; 87186

== ENCOUNTER 2021-06-10 08:11 | Day surgery (SDC) | payer OTHER ==
[~2021-06-10] VITALS: Ht 170.2 cm; Wt 115.0 kg
[~2021-06-10 08:11] MED LIST changes: +BUPIVACAINE-EPI 0.25% 30 ML VIAL KIT. ONE; +CHOL500050 PO; +FEXO180T16 PO; +HYDROmorphone 2 MG/ML VIAL IVP PRN; +IV RINGERS,LACTATED 1000ML 1,000 ML IV SCH; +PROCHLORPERAZINE 10 MG/2 ML VIAL. IVP PRN; +SURGICEL HEMOSTAT 4X8 EACH. ONE; +UBID10CA5 PO; +fentaNYL PF VIAL 100 MCG/2 ML VIAL IVP PRN
[2021-06-10 08:59] VITALS: BP 135/75
[2021-06-10] MEDS ORDERED: ONDANSETRON PF 4 MG/2 ML VIAL. ONE (09:32)
[2021-06-10] MEDS ORDERED: PROPOFOL 10 MG/ML (20ML) VIAL. IV ONE (09:32)
[2021-06-10] MEDS ORDERED: FAMOTIDINE 20 MG/2 ML VIAL ONE (09:32)
[2021-06-10] MEDS ORDERED: DEXAMETHASONE SOD PHOS 4 MG/ML VIAL ONE (09:32)
[2021-06-10] MEDS ORDERED: LIDOCAINE 2% PF 5 ML VIAL. ONE (09:33)
[2021-06-10] MEDS ORDERED: fentaNYL PF VIAL 100 MCG/2 ML VIAL ONE ×2 (09:33→12:08)
[2021-06-10] MEDS ORDERED: ROCURONIUM 50 MG/5 ML VIAL. ONE (09:33)
[2021-06-10] MEDS ORDERED: MIDAZOLAM HCL/PF 2 MG/2 ML VIAL. ONE (09:33)
--- NOTE | 2021-06-10 11:54 | PDOC4 ---
BRIEF OPERATIVE NOTE Date: Jun 10, 2021 Pre-Op Diagnosis 1. Breast Cancer with genetic predisposition for ovarian cancer Post-Op Diagnosis Same + ROV Cyst Procedure Performed [facility] BSO Surgeon Dr. Bahena Frame Cleaner Agricultural Equipment Sales Manager: Ruben Anesthesia Type: General Blood Loss 5 ml Specimens Obtained yeyo. fallopian tubes and ovaries Findings nml size uterus, nml fallopian tubes yeyo., nml KIAH; ROV with 2.5 cm cyst Complications none Operative Note see dictation REYNA BAHENA Jr, MD Jun 10, 2021 11:54
[2021-06-10] MEDS ORDERED: OXYC-314 PO (11:57)
--- NOTE | 2021-06-10 11:59 | DISCH ---
DISCHARGE INSTRUCTIONS Condition on Discharge Condition on Discharge: Stable Activity After Discharge Activity Instructions for Disc: Activity as tolerated Lifting Instructions after Dis: No heavy lifting Driving Instructions after Dis: No driving for 2 weeks Weight Bearing Status after Di: Partial weight bearing Diet after Discharge Diet after Discharge: Regular Diet Texture: Regular Contacting the DRMarcio after DC Call your doctor for: Concerns you may have Follow-Up Follow up with: Dr. Bahena in 1 week REYNA BAHENA Jr, MD Jun 10, 2021 11:59
[2021-06-10] MEDS ORDERED: MORPHINE SULFATE 2 MG/ML INJ. ONE (12:08)
[2021-06-10] MEDS: fentaNYL PF VIAL 100 MCG/2 ML VIAL IVP PRN ×2 (12:12→12:19)
[2021-06-10] MEDS: MORPHINE SULFATE 2 MG/ML INJ. IVP PRN ×2 (12:13→12:26)
[2021-06-10] MEDS ORDERED: oxyCODONE/APAP 5/325 1 TAB TABLET PO ONE (12:15)
--- NOTE | 2021-06-10 12:20 | OP ---
DATE OF SURGERY: 06/10/2021 PREOPERATIVE DIAGNOSIS: Breast cancer with genetic predisposition for ovarian cancer. POSTOPERATIVE DIAGNOSIS: Breast cancer with genetic predisposition for ovarian cancer. PROCEDURE: Right ovarian cyst. SURGEON: Eric Bahena MD. ANNEALING FURNACE OPERATOR: Ruben. PROCEDURE: Laparoscopic BSO. ANESTHESIA: GETA. ESTIMATED BLOOD LOSS: 5 mL. COMPLICATIONS: None. FINDINGS: Normal size uterus, normal fallopian tubes bilaterally, normal left ovary, right ovary demonstrated 2.5 cm size cyst. COMPLICATIONS: None. SUMMARY: A 61-year-old female with breast cancer and genetic predisposition with HER-2/octavio gene for ovarian cancer. The patient was counseled on the risks, benefits, and expectation for laparoscopic BSO and voiced clear understanding to proceed. DESCRIPTION OF PROCEDURE: The patient was taken to surgery suite and placed in dorsal lithotomy position, was prepped with Betadine solution for vaginal prep and ChloraPrep for abdominal prep. After adequate anesthesia, bivalve speculum was placed vaginally. Anterior lip of cervix grasped with single tooth tenaculum. Uterine acorn manipulator was then placed. The bivalve speculum was removed and attention was now placed on abdomen. Small transverse skin incision was made just below the umbilicus with a scalpel. The Veress needle was then placed through the infraumbilical incision site. The abdomen was allowed to insufflate up to 1-1/2 liters CO2 gas. The Veress needle was then removed. A 5 mm trocar was placed. The scope was positioned. Uterus appeared normal size. Fallopian tubes appeared normal bilaterally. Left ovary appeared normal. Right ovary demonstrated 2.5 cm size cyst. Two additional incisions were made in the left lower quadrant with a scalpel in which 5 mm trocar and an 11 mm trocar was placed. With aid of graspers and EnSeal device, the right infundibulopelvic ligament was coagulated and dissected. The right uteroovarian pedicle was coagulated and dissected. The remainder of the right adnexa was dissected away from the pelvic sidewall. The pedicle was hemostatic. The right fallopian tube and ovary were removed with the Endobag. Same process took place with left adnexa. The remainder of the abdominal cavity appeared normal and the pedicles were both hemostatic. The trocars were then removed under direct visualization. The abdomen was allowed to deflate as much as possible along with mechanical manipulation. The 11 mm trocar site was closed at the fascial layer using 2-0 Vicryl suture in a [id number] manner. The 3 incisions were closed at the skin level using 4-0 Vicryl suture in subcuticular manner. 0.25% Marcaine with epinephrine was injected at each incision site. Uterine acorn manipulator and single tooth tenaculum were removed. The patient tolerated the procedure well and was taken to recovery room in stable condition. Sponge and needle count correct x 3. ROBERT/CARLOTTA DR: Fernando TID: [id number]
[2021-06-10 12:40] VITALS: BP 124/63
--- NOTE | 2021-06-14 18:22 | PATHOLOGY ---
[facility] Accession Number: [id number] . 01 Material submitted: . PART A: ovary - RIGHT FALLOPIAN TUBE AND OVARY. Modifiers: right PART B: ovary - LEFT FALLOPIAN TUBE AND OVARY. Modifiers: left . 01 Clinical history: . BREAST CANCER GENE/RT OVARIAN CYST LAPAROSCOPIC BSO . 02 Diagnosis: A. Fallopian tube and ovary, laparoscopic right salpingo-oophorectomy: - Serous cysts of ovary, multiple, the largest measuring 1.1 cm in greatest dimension. - Few small paratubal cysts and cystic [place] rests. . B. Fallopian tube and ovary, laparoscopic left salpingo-oophorectomy: - Serous cysts of ovary, multiple, small, the largest measuring 0.2-0.3 cm in greatest dimension. - Few small paratubal cysts and cystic [place] rests. (JPM:radha; 06/14/2021) [facility] 06/14/2021 1715 Local . 02 Comment: There is no evidence of malignancy. (JPM:radha; 06/14/2021) . 02 Electronically signed: . Chris Hawkins MD, Pathologist NPI- [id number] . 01 Gross description: . A. The specimen is received in formalin, labeled "[place], right fallopian tube and ovary". Received is a 7 g clinically right adnexal specimen consisting of a fimbriated fallopian tube measuring 4.4 cm in length by 0.5 cm in diameter attached to a 2.5 x 2.1 x 1.1 cm ovary. The fallopian tube is inked as follows: Proximal-yellow, mid-blue, distal-black. Sectioning reveals a pinpoint to patent lumen. Sectioning of the ovary reveals a unilocular cystic structure measuring 1.1 cm filled with clear fluid. The remaining cut surfaces display pale parr, normal ovarian stroma. The specimen is submitted entirely as follows: . A1 proximal third of fallopian tube A2 mid third of fallopian tube A3 distal third and fimbria of fallopian tube A4-A9 entire ovary. . B. The specimen is received in formalin, labeled "[place], left fallopian tube and ovary". Received is a 5 g clinically left adnexal specimen consisting of a fimbriated fallopian tube measuring 2.1 cm in length by 0.5 cm in diameter attached to a 1.9 x 1.8 x 1.1 cm ovary. The fallopian tube is inked as follows: Proximal third-yellow, mid third-blue, distal third-black. Sectioning reveals a patent lumen. Sectioning through the ovary reveals pale parr, normal ovarian stroma. The specimen is submitted entirely as follows: . B1 proximal third of fallopian tube B2 mid third of fallopian tube B3 distal third and fimbria of fallopian tube B4-B6 entire ovary. (CAA; 06/11/2021) [facility] 06/11/2021 1328 Local . 02 Pathologist provided ICD-10: N83.291, N83.292, N83.8 . 02 CPT . 702722, [id number] Specimen Comment: A courtesy copy of this report has been sent to [phone], [phone] Specimen Comment: [id number] Specimen Comment: Report sent to / DR MASON Performed at: 01 [facility] [address], [place], [place] [id number] MD Oumar Kirkland MD Phone: [phone] Performed at: [facility] [address] [place], [place] [id number] MD Chris Hawkins MD Phone: [phone]
== END 2021-06-10 13:10 | disposition home or self-care (01) ==
LOC: SURG 08:11
PROVIDERS: ATTEND Obstetrics & Gynecology
DX: N83.292 Other ovarian cyst, left side (principal); N83.291 Other ovarian cyst, right side; N83.8 Other noninflammatory disorders of ovary, fallopian tube and broad ligament; I10 Essential (primary) hypertension; K21.9 Gastro-esophageal reflux disease without esophagitis; G47.30 Sleep apnea, unspecified; C50.911 Malignant neoplasm of unspecified site of right female breast; Z87.891 Personal history of nicotine dependence; Z79.899 Other long term (current) drug therapy; Z98.890 Other specified postprocedural states; Z88.2 Allergy status to sulfonamides; Z88.8 Allergy status to other drugs, medicaments and biological substances
CPT/HCPCS: 58661; A4213; A4364; A4930; A6219; J0690; J1100; J2250; J2270; J2405; J2704; J3010; J3490; A4452